=== PATIENT | female | born 1985 | race Caucasian/White ===

== ENCOUNTER 2019-06-08 12:22 | Outpatient (CLI) | payer BC, SELFPAY ==
--- NOTE | ~2019-06-08 | XR_ITS ---
EXAMINATION: XR abdomen/kub 1V INDICATION: Left flank pain TECHNIQUE: Supine views of the abdomen were obtained on 2 radiographs. COMPARISON: None FINDINGS: Stones measuring up to 3 mm project in the right kidney. No definite left-sided urinary tra ct calculi are identified. Bowel contents limited evaluation for stones in the mid and distal ureters . There are no dilated loops of bowel. The visualized lung bases are clear. IMPRESSION: 1. Right nephrolithiasis. 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 Right nephrolithiasis.
== END 2019-06-08 12:23 | disposition home or self-care (01) ==
LOC: ANHIMG 12:31
PROVIDERS: Visit Provider Nurse Practitioner Adult Health
DX: N20.0 Calculus of kidney (principal)
CPT/HCPCS: 74018

== ENCOUNTER → 2019-06-11 13:28 | Outpatient (CLI) | payer BC, SELFPAY ==
--- NOTE | ~2019-06-11 | CT_ITS ---
EXAMINATION: CT abdomen pelvis wo con DATE: 06/11/2019 13:43 INDICATION: Calcium kidney stone. TECHNIQUE: Computed tomography (CT) of the abdomen and pelvis was performed without intravenous contr ast. Automated exposure control and iterative reconstruction technique were employed. The dose-length product was 182.56 mGy-cm. COMPARISON: None. FINDINGS: The visualized portions of the lung bases are clear without pneumonia or pleural effusion. The heart size is normal. No pericardial effusion. The liver, gallbladder, spleen, pancreas, and adre nal glands are normal. There are 3 mm and 2 mm stones in right kidney. There are 3 mm, 1 mm, and 1 mm stones in left kidney. There are no dilated loops of bowel. The appendix is normal. There are no pat hologically enlarged lymph nodes. There is no free intraperitoneal fluid. There is mild lumbar spondy losis. IMPRESSION: 1. Small bilateral nonobstructing kidney stones. Reviewed, dictated and finalized at location A. 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
== END ==
PROVIDERS: PCP Family Medicine; Visit Provider Urology
DX: N20.0 Calculus of kidney (principal)
CPT/HCPCS: 74176

== ENCOUNTER 2019-06-11 14:06 | Outpatient (CLI) | payer BC, SELFPAY ==
[2019-06-11 14:46] LABS: Prothrombin Time 13.3 Seconds (11.1-14.7)
[2019-06-11 14:47] LABS: Partial Thromboplastin Time 26.8 SECONDS (22.3-36.8)
[2019-06-11 15:02] LABS: Beta HCG Quantitative < 2.39 mIU/ML
== END 2019-06-11 14:07 | disposition home or self-care (01) ==
PROVIDERS: PCP Family Medicine; Visit Provider Urology
DX: N20.0 Calculus of kidney (principal)
CPT/HCPCS: 36415; 84702; 85610; 85730

== ENCOUNTER 2019-06-15 01:46 | Day surgery (SDC) | payer BC, SELFPAY ==
[2019-06-11 10:51] VITALS: BMI 17.7
[2019-06-15] VITALS (9 sets, daily range): BP systolic 100–113; BP diastolic 66–87; PULSE 63–95; RESP 12–18; TEMP 36.4; O2SAT 99–100
--- NOTE | ~2019-06-15 | XR_ITS ---
EXAMINATION: XR abdomen/kub 1V DATE: 06/15/2019 06:45 INDICATION: Left renal stone. Preop. TECHNIQUE: A supine view of the abdomen was obtained. COMPARISON: Abdomen radiographs 06/08/2019, CT abdomen and pelvis 06/11/2019 FINDINGS: There are no dilated loops of bowel. There are 3 mm and 2 mm stones in right kidney. Left k idney is obscured by bowel. There are no dilated loops of bowel. IMPRESSION: 1. Small right kidney stones. Reviewed, dictated and finalized at location A. 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
--- NOTE | ~2019-06-15 | XR_ITS ---
EXAMINATION: XR retrograde pyelo w/stent LT DATE: 06/15/2019 09:29 INDICATION: Left internal ureteral stent placement TECHNIQUE: Fluoroscopic images from a left internal ureteral stent placement are submitted for review . 53 seconds of fluoroscopy time. 7 fluoroscopic images. FINDINGS: There is a left double-J internal ureteral stent projecting in expected position, with proximal [place] loop at the level of the renal pelvis and distal loop in the pelvis within the bladder lumen. IMPRESSION: 1. Left internal ureteral stent placement. Please refer to real-time procedural findings for detail s. Reviewed, dictated and finalized at location B. 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 Left internal ureteral stent placement. Please refer to real-time procedur al findings for details.
--- NOTE | 2019-06-15 07:17 | WPDHPUPDATE1 ---
History and Physical Update Update Date/Time: 06/15/19 07:17 History and Physical has been reviewed, including an updated exam of the patient. There are NO changes in the patient's condition. Risks, benefits, and alternatives have been discussed and questions answered. Patient agrees to proceed with procedure.
[2019-06-15] MEDS: LACTATED RINGERS 1,000 ML 30 ML IV CONT ×2 (07:41→10:42)
--- NOTE | 2019-06-15 08:36 | WPDANESEPPF ---
Anes - Initial Pre Proc Eval Procedure: Operation Date: 06/15/19 08:30 Proposed Procedures p Left Renal Extracorporeal Shock Wave Lithotripsy, Possible Cystoscopy, Possible Left Ureteroscopy, Possible Retrograde Pyelogram, Possible Left Stent Placement - Dionicio Gonzales MD s Possible Holmium Laser Procedure - Dionicio Gonzales MD Date/Time: 06/15/19 08:36 Surgeon: Dionicio Gonzales MD Pre Op Diagnosis: Left Kidney Stone Patient Data Age: 34 Gender: F Height: 5 ft 9 in Weight: 55.3 kg Allergies Allergy/AdvReac Type Severity Reaction Status Date / Time ibuprofen Allergy Intermediate SWELLING, Verified 06/11/19 10:53 THROAT ITCHING Home Medications Medication Instructions Recorded Confirmed Type cholecalciferol (vitamin D3) 1,000 unit PO DAILY 06/11/19 06/15/19 History [Vitamin D3] metformin 500 mg PO DAILY 06/11/19 06/15/19 History norethindrone (contraceptive) 0.35 mg PO DIRECTED 06/11/19 06/11/19 History omega 5-ugd-bzz-fish oil [[place]-3] 1 cap PO DAILY 06/11/19 06/15/19 History Patient hx anesthesia problems: none Family hx anesthesia problems: none PMFSH Past Medical History Medical History (Updated 06/15/19 @ 08:36 by Juan Carlos Thomas MD) PCOS (polycystic ovarian syndrome) Anes - Eval Final PreProcedure Day of Procedure 06/15/19 08:36 Patient weight: normal Heart: regular rate and rhythm Lungs: clear to auscultation Airway: Mallampati scale class II Neurological: alert and oriented Last oral intake: >/= 8 hours ASA classification: II Emergent: no Anesthetic plan: proceed Anesthesia type and monitoring: general LMA and standard monitoring Informed Consent: The patient's anesthetic plan and its attendant risks and benefits were discussed with the patient/family/POA. Questions were solicited and answers provided to the satisfaction of the patient/family/POA.
[2019-06-15] MEDS: ceFAZolin 2 GM/D5W 50 ML 2 GM/50 ML BAG IVPB (08:48)
[2019-06-15] MEDS: LIDOCAINE HCL 2% GEL UROJET 10 ML PKG MUCOUS MEM (09:10)
--- NOTE | 2019-06-15 09:25 | PM.PROC ---
Procedure Note - Detailed Date of procedure: 06/15/19 Pre-op diagnosis: Left Kidney Stone Post-op diagnosis: other (No evidence of renal calculi. Calcification on CT appears to be parenchymal) Procedure performed: Cystoscopy, left retrograde pyelogram, left ureteroscopy with stent placement Description of procedure: Patient was taken the operative suite and correctly identified. Once general anesthesia was obtained she was placed in the dorsal lithotomy position and prepped and draped in the usual sterile fashion. Twenty-two Sudanese scope was inserted into the bladder. There are no tumors noted. Left ureteral orifice was cannulated with a guidewire. We dilated with an 8/10 dilator. A 2nd wire was then placed. A mini flexible ureteral scope was inserted over the guidewire up to the renal pelvis. Patient has numerous calices. We did a pyelogram at this point time to delineate the calices. Every single calyx was identified and visualized directly. There was no evidence of any calculi in these calices. At this point time the scope was removed. 4.8 Sudanese contour stent was placed the proximal end coiled in the renal pelvis and the distal in the bladder. Bladder was drained. 2% viscous lidocaine was inserted into the urethra. Patient is taken recovery room stable condition. She will follow up next week for stent removal. Anesthesia: GLMA Surgeon: Dionicio Gonzales MD Drains: Yes Packing: No Pathology: none sent Complications: No immediate complications Condition: stable Disposition: PACU
[2019-06-15] MEDS: ONDANSETRON INJ 4 MG/2 ML VIAL IV PUSH (10:30)
[2019-06-15] MEDS: OXYBUTYNIN CHLORIDE 5 MG TABLET PO (11:06)
== END 2019-06-15 12:19 | disposition home or self-care (01) ==
PROVIDERS: PCP Family Medicine; Visit Provider Urology
PROC: (CPT 50590; principal; 2019-06-15 08:30)
DX: N20.0 Calculus of kidney (principal); E28.2 Polycystic ovarian syndrome; Z79.84 Long term (current) use of oral hypoglycemic drugs
CPT/HCPCS: 52332; 74018; 74420; A9270; C1758; C1769; C2617; J0131; J0690; J1100; J1200; J2250; J2405; J2704; J3010; J7120; Q9966

== ENCOUNTER → 2020-02-28 12:47 | Outpatient (CLI) | payer BC, SELFPAY ==
--- NOTE | ~2020-02-28 | US_ITS ---
EXAMINATION: US transvaginal EXAM DATE: 02/28/2020 13:17 INDICATION: Polycystic ovary syndrome TECHNIQUE: Pelvic transvaginal sonogram was performed. There are multiple grayscale and Doppler kenny ges available for interpretation. There is no prior study for comparison. FINDINGS: Uterus measures 6.9 x 3.7 x 3.7 cm, and is morphologically normal. Endometrial stripe stephanie sures up to 1.4 mm, within normal limits. There is no free pelvic fluid. Right adnexa: The ovary measures 3.9 x 2.7 x 3.7 cm with scattered peripheral follicles. Ovarian vasc ular flow confirmed. Left adnexa: The ovary measures 2.9 x 2.9 x 2.5 cm with scattered peripheral follicles. Ovarian vascu lar flow confirmed. IMPRESSION: 1. Ovaries with scattered peripheral follicles, possible polycystic ovarian disease. Reviewed, dictated and finalized at location A. 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 Ovaries with scattered peripheral follicles, possible polycystic ovarian di sease.
== END ==
PROVIDERS: PCP Family Medicine; Visit Provider Internal Medicine Endocrinology, Diabetes & Metabolism
DX: E28.2 Polycystic ovarian syndrome (principal)
CPT/HCPCS: 76830

== ENCOUNTER → 2021-12-18 12:50 | Outpatient (CLI) | payer OTHER, SELFPAY ==
--- NOTE | ~2021-12-18 | CT_ITS ---
EXAMINATION: CT abdomen pelvis wo con DATE: 12/18/2021 13:20 INDICATION: Flank pain TECHNIQUE: Computed tomography (CT) of the abdomen and pelvis was performed without intravenous contr ast. The dose-length product (DLP) was 254.79 mGy-cm. Automated exposure control and iterative recons truction technique were employed. COMPARISON: 06/11/2019 FINDINGS: The lung bases are clear. The heart size is normal. The liver, spleen, pancreas, gallbladde r, and adrenal glands are normal. There are three nonobstructing stones of the left kidney which inga ure up to 5 mm. There are three nonobstructing stones of the right kidney which measure up to 3 mm. N o stones are identified in the ureters or bladder. There is no hydronephrosis or hydroureter. A large volume of colonic stool is present. No pathologically enlarged abdominal or pelvic lymph nodes are i dentified. There is no free intraperitoneal gas or evidence of bowel obstruction. IMPRESSION: 1. Nonobstructing bilateral nephrolithiasis. 2. Constipation. Reviewed, dictated and finalized at location B.
== END ==
PROVIDERS: PCP Family Medicine; Visit Provider Family Medicine
DX: R10.9 Unspecified abdominal pain (principal); N20.0 Calculus of kidney; K59.00 Constipation, unspecified
CPT/HCPCS: 74176

== ENCOUNTER 2024-06-07 07:58 | Outpatient (CLI) | payer BC, SELFPAY ==
[2024-06-07 19:23] LABS: Erythrocyte Sedimentation Rate 8 mm/hr (0-20)
[2024-06-12 07:58] LABS: SS-A <1.0 NEG AI (<1.0 NEG); SS-B <1.0 NEG AI (<1.0 NEG)
== END 2024-06-07 07:59 | disposition home or self-care (01) ==
LOC: ANHBWCLAB 08:00
PROVIDERS: PCP Nurse Practitioner Adult Health; Visit Provider Nurse Practitioner Adult Health
DX: R68.2 Dry mouth, unspecified (principal); E07.9 Disorder of thyroid, unspecified; K90.49 Malabsorption due to intolerance, not elsewhere classified; R63.1 Polydipsia
CPT/HCPCS: 36415; 85652; 86235